=== PATIENT | male | born 1960 | race Caucasian/White ===

== ENCOUNTER 2016-12-30 11:54 | Emergency (ER) | payer MEDICARE ==
--- NOTE | 2016-12-30 15:14 | RAD ---
INDICATION: LEFT arm/wrist pain. COMPARISON: No relevant prior exams available on the [facility] [place] [place] PACS for comparison. TECHNIQUE: AP, lateral, and oblique views LEFT wrist. REPORT: Bone density appears decreased throughout. Healed fracture at the distal metaphysis of the radius with resulting dorsal tilt of the distal radioarticular surface. Negative for acute or subacute fracture. Mild osteoarthritis at the radiocarpal, intercarpal, and carpometacarpal articulations. Unremarkable soft tissue contours. IMPRESSION: 1. Bone density appears decreased throughout. 2. Healed fracture of the distal metaphysis of the radius. 3. Mild osteoarthritis.
[2016-12-30 16:05] VITALS: BP 126/75
--- NOTE | 2017-01-04 17:41 | ED ---
Upper Extremity Pain - HPI Summary HPI Summary: Pt presents for left arm pain that is 'insufferable'. Pt has morphine pump on for chronic low back pain. Sees Dr. Stanford in [place] in [place]. Used to go to pain clinic, currently does not. Here seeking script for oxycodone. Seen at [place] [facility] also asking for a script for oxycodone. Pt has hx of broken left wrist 07/2016, states saw ortho for this and was wearing splint, was taking oxycodone 10mg TID, only has 3 left and no refills, still c/o pain, pt moving hand, wrist and left arm without difficulty. Patient has good radial pulses. On examination he seems to be very lethargic and eyes with midriasis. He states he does not take a lot of medication and just needs a month worth to get by. He denies recurrent injury to the left wrist. He is taking mophine for the chronic back pain and states it does not help. - History of Current Complaint Chief Complaint: EDExtremityUpper Stated Complaint: LT WRIST PAIN Time Seen by Provider: 12/30/16 12:10 Hx Obtained From: Patient Mechanism Of Injury: Unknown Onset/Duration: Still Present Timing: Constant Severity Initially: Severe Severity Currently: Severe Pain Location: Wrist Character: Aching, Throbbing Aggravating Factor(s): Movement, Lifting, Flexion, Extension, Abduction, Adduction Alleviating Factor(s): Other - rx oxycodone Associated Signs & Symptoms: Positive: Numbness/Tingling Related History: Dominant Hand Right - Risk Factors Non-Orthopedic Risk Factor: Negative DVT Risk Factors: Negative Septic Arthritis Risk Factor: Negative Compartment Syndrome Risk Factors: Pain, Paresthesias - Allergies/Home Medications Allergies/Adverse Reactions: Allergies Allergy/AdvReac Type Severity Reaction Status Date / Time No Known Allergies Allergy Verified 12/30/16 12:04 PMH/Surg Hx/FS Hx/Imm Hx Previously Healthy: Yes - Immunization History Hx Pertussis Vaccination: No Immunizations Up to Date: Unable to Obtain/Confirm Infectious Disease History: No Infectious Disease History: Denies: Traveled Outside the [place] in Last 30 Days - Social History Occupation: Unemployed Lives: Alone Alcohol Use: None Hx Substance Use: Yes Substance Use Type: Reports: Prescribed Hx Tobacco Use: Yes Smoking Status (MU): Light Every Day Tobacco Smoker Review of Systems Constitutional: Negative Eyes: Negative Positive: Other - mydriasis ENT: Negative Cardiovascular: Negative Respiratory: Negative Positive: no symptoms reported, see HPI Positive: Arthralgia - severe left wrist pain Skin: Negative Neurological: Negative Psychological: Normal All Other Systems Reviewed And Are Negative: Yes Physical Exam Triage Information Reviewed: Yes Vital Signs On Initial Exam: Initial Vitals Temp Pulse Resp BP Pulse Ox 98.6 F 92 18 129/80 97 12/30/16 11:59 12/30/16 11:59 12/30/16 11:59 12/30/16 11:59 12/30/16 11:59 Vital Signs Reviewed: Yes Appearance: Positive: Well-Appearing, No Pain Distress, Well-Nourished Skin: Positive: Warm, Skin Color Reflects Adequate Perfusion Head/Face: Positive: Normal Head/Face Inspection Eyes: Positive: Other: - mydriasis Neck: Positive: Supple, No Lymphadenopathy Respiratory/Lung Sounds: Positive: Clear to Auscultation Cardiovascular: Positive: Normal, RRR, Pulses are Symmetrical in both Upper and Lower Extremities Musculoskeletal: Positive: Normal, Strength/ROM Intact - Thorough physical exam was performed, focusing on special wrist tests. Limited ROM. Pain with palpation over ulnar aspect of wrist at ulnar head. Pain with palpation over radial aspect over radial head. No pain, swelling or tenderness over anatomical snuffbox. No crepitus noted. No pain on palpation over medial or lateral elbow or forearm tenderness. Due to patient pain around injury, physical exam was limited. Pulses intact bilaterally. No temperature change, color change or pallor noted bilaterally. Sensory intact of radial, medial and ulnar nerve. Capillary refill < 2 sec. Diagnostics - Vital Signs Vital Signs Temp Pulse Resp BP Pulse Ox 12/30/16 16:04 98.5 F 88 16 126/75 12/30/16 12:15 98.6 F 92 18 129/80 97 12/30/16 11:59 98.6 F 92 18 129/80 97 - Laboratory Lab Statement: Any lab studies that have been ordered have been reviewed, and results considered in the medical decision making process. Course/Dx - Course Course Of Treatment: Based on [facility] Wrist Rules, patient sent to imaging. Xray negative for fracture or other acute findings. Wrist was given splint to allow for immobilization for this period of time. Patient given orthopedic follow up in 5-7 days. Encouraged Ibuprofen 600mg three times daily with meals for pain. Return precautions given. Educated patient regarding wrist injuries , healing time and the possibility of further evaluation and imaging as orthopedist sees fit. patient is requesting 30 days oxycodone. provider explained to patient he would be able to receive 2 days worth, but will need to follow up. he is followed by a pain clinic and has been seen at multiple venues around [facility] requesting pain medicine. he is very upset when hearing this and states he wants to leave. he is agitated, but accepts the 2 days worth of pain medicine. provider agrees to give gabapentin, but will need to follow up with an ortho for further evaluation. - Diagnoses Differential Diagnosis/HQI/PQRI: Positive: Fracture (Open), Fracture (Closed), Strain, Sprain Provider Diagnoses: Wrist pain, chronic Discharge - Discharge Plan Condition: Stable Disposition: HOME Prescriptions: Gabapentin CAP(*) [Neurontin 300 CAP(*)] 300 mg PO SEE INSTRUCTIONS #113 cap oxyCODONE/Acetamin 10/325(NF) [Percocet 10/325 (NF)] 1 tab PO Q6H PRN #8 tab MDD 4 PRN Reason: Pain Patient Education Materials: Wrist Injury (ED) Referrals: [facility] [Provider Group] Ynes Keenan MD [Medical Doctor] - No Primary Care Phys,NOPCP [Primary Care Provider] - Additional Instructions: Wrist brace comfort and to allow for immobilization during this time to prevent re-injury. Ibuprofen 600mg three times daily with meals for pain. Follow up with orthopedic physician in 5-7 days. If numbness, tingling or decreased sensation develop, you notice color changes in your fingers or pain is worsening, come back to ED immediately for re- evaluation. Protect the area. For your comfort level, do not bear weight, pull or push until you can injury is somewhat healed. This may involve the need for immobilization or crutches for a period of time. Rest the involved area, but not too long. You may need to be off your injury for some time to allow for healing, however excessive immobilization of joints can lead to stiffness and delay healing time. Early mobilization is encouraged if it is pain-free. Compression: You may use and keep an mac wrap bandage over the injury to decrease swelling. Again, this should be limited and be taken off periodically to encourage early range of motion and mobilization. Elevate: Try to elevate the injured area above the heart whenever possible. Take Gabapentin as prescribed. Take oxycodone for any breakthrough pain. Follow up with Dr. Keenan immediately this week I have given you a list of PCP's in the area for further evaluation.
== END 2016-12-30 16:04 | disposition home or self-care (01) ==
LOC: ED 11:54
DX: M25.532 Pain in left wrist (principal); G89.29 Other chronic pain; M19.032 Primary osteoarthritis, left wrist
CPT/HCPCS: 99282